=== PATIENT | female | born 1975 | race Caucasian/White ===

== ENCOUNTER 2022-11-12 15:32 | Outpatient (CLI) | payer OTHER ==
[2022-11-12 16:16] VITALS: BP 143/82
--- NOTE | 2022-11-12 16:16 | SLEEP CARE CONSULTATION ---
Information from patient questionnaire entered by Noris Leyva. I have reviewed and concur with the information entered by Noris Leyva. This document represents the service I personally performed and the decisions made by me, Brianna Carter ARNP. History of Present Illness Service Date and Time: 11/12/2022 1532 Reason for Visit: New patient Chief Complaint: reports: Unrefreshed sleep, Excessive daytime sleepiness, Fatigue Date of Onset: 10-15 years Usual bedtime: 9:30 PM to read; about 10:30 to sleep Time it takes to fall asleep: 30-60 minutes Snores at night: No (only with stuffy nose or allergies) Observed to quit breathing while asleep: No Sleeps alone due to snoring: No Number of times waking at night: 1-2 Reasons for waking at night: reports: Bathroom, Other (noise; cough - tickle in throat/dry throat in night). denies: Choking, Gasping for air Toss, Turn, or Twitch while sleeping: No Recalls having dreams: Yes Usually gets out of bed at: [id number] Feels refreshed in the morning: No Morning headache: No Sleepy or fatigued during the day: Yes Ever fallen asleep while driving: No Takes day naps: No Dreams during day naps: No Prior sleep studies: No Additional HPI information: I had the pleasure of seeing TAVO ROSADO today regarding the possibility of her having a sleep disorder. Her current complaints are excessive daytime sleepiness, fatigue and unrefreshed sleep. She was diagnosed with MS and her neurologist recommended she have a sleep study. 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 She still had more daytime fatigue and tiredness. Her only hears some shallow breathing and occasional snores when she is stuffed up. - Parasomnia Symptoms Ever been unable to move upon waking from sleep: No Walks in sleep: No Talks in sleep: Yes Ever acted out dreams in sleep: No Ever felt weak in the knees when startled or emotional: No Bothered by creepy, crawly, restless sensations in legs: Yes (mostly resolved with taking Iron) Problems with memory or concentration: Yes (only when extremely tired/stress for recall) Subjective Initial Brewster Sleepiness Scale score: 3 (11/12/2022) Past Medical History Past Medical History: reports: Anxiety, Asthma, Depression, Other (multiple sclerosis; allergies; restless legs) Social History 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 Patient is and lives in [place]. Have you smoked in the past 12 months: No Alcohol use: Yes Alcohol amount and frequency: 1 glass wine, maybe 3-5 per week Caffeine use: Yes Caffeine amount and frequency: 3-4 cups coffee daily Family History Family history of sleep disordered breathing: Yes Family Hx Sleep Apnea: Mother: Snoring, Father: Snoring, Grandparent: Snoring Allergies and Home Medications Known drug allergies: No Drug allergies reviewed: Yes Home medication list reviewed: Yes Allergy and home medication list: Medications: Ibuprofen, prn Triamcinolone 0.1% cream, prn Cetirizine HCl Iron Cyanocobalamin Triamcinolone 55 mcg/act nasal spray, prn Escitalopram 20 mg daily Melatonin 3 mg, prn Flovent HFA 110 mcg/act inhaler, daily Tysabri, infusion IV every 28 days Sulfacteamide Sodium Ex, cream, as need Cholecalciferol 125 mcg [place]-3 fatty acids Levalbuterol 45/mcg/act inhaler, prn Review of Systems Weight gain over past 5 years: 25 Cardiovascular: denies: high blood pressure Respiratory: reports: other (night cough) Gastrointestinal: denies: heartburn Neurological: reports: headaches, other (MS) Psychiatric: reports: anxiety, depression Ear/Nose/Throat: reports: nasal congestion, sinus problems, dry mouth/throat Immunologic: reports: sneezing, rash, itching, allergies to food or environment Physical Exam Vital signs obtained and entered by: PB Jin Blood Pressure: 143/82 (left arm) Cuff size: long Heart Rate: 92 O2 Saturation: 100 Height: 5 ft 4 in Weight: 134 lb 9.6 oz (with clothes/shoes) Body Mass Index: 23.1 BMI Classification: Normal Neck circumference: 12.5 (inches) Mouth and throat: narrow oropharynx Soft palate: long Hard palate: normal Uvula: normal Uvula visualization: 50% Mallampati Class II Tongue: normal in size Tonsils: small Neck: normal w/o lymphadenopathy or thyromegaly Heart: regular rate and rhythm Lungs: clear bilaterally Impression and Plan 1. Suspected Obstructive Sleep Apnea-Hypopnea Syndrome, as suggested by a history of unrefreshed sleep, cognitive impairment, and excessive daytime sl eepiness. Narrow oropharynx and obesity are common predisposing factors for obstructive sleep apnea-hypopnea syndrome. I recommend proceeding to polysomnography to confirm the diagnosis and to assess severity. If the patient has significant sleep disordered breathing, a manual CPAP titration study will also be performed to find the optimal treatment pressure. I informed the patient of what the sleep studies involve and after some discussion, obtained agreement to proceed. The pathophysiology of obstructive sleep apnea-hypopnea syndrome was discussed with the patient and health risks of cardiovascular and cerebrovascular disease if not treated. Risks of drowsy driving discussed in detail and patient advised to avoid long distance driving and to caul fat puller at the first sign of drowsiness. Patient agreed to plan. * Schedule polysomnography +- manual CPAP titration study and return in 1-2 weeks after the study to discuss result and initiate therapy. * Avoid long distance driving or driving when feeling sleepy. * Avoid alcohol, sedative and muscle relaxant around bedtime. * Review instructions provided by trained office staff on how to prepare for the sleep study. * Return for follow-up after sleep study completed. Counseling Topics: Weight control Visit Type: In Office Time Spent with Patient (minutes): 31 Provider Statement: I spent 100% of the Face to Face Visit with the patient with greater than 50% spent counseling the patient and coordination of care.
== END 2022-11-12 15:33 | disposition home or self-care (01) ==
LOC: SC 15:32
PROVIDERS: ATTEND Nurse Practitioner Family
DX: G47.10 Hypersomnia, unspecified (principal); R41.89 Other symptoms and signs involving cognitive functions and awareness; G47.8 Other sleep disorders
CPT/HCPCS: 99203; 99212